=== PATIENT | female | born 1995 | race Native Hawaiian/Other Pacific Islander ===

== ENCOUNTER 2022-01-30 09:54 | Outpatient (CLI) | payer OTHER ==
[2022-01-30 10:27] VITALS: BP 120/70
[2022-01-30] MEDS ORDERED: ACETAMINOPHEN 500 MG TABLET PO PRN (10:31)
--- NOTE | 2022-01-30 10:37 | PROVIDER PROGRESS NOTE ---
- HPI Chief Complaint: Other (tightening 26 year old at 22 weeks gestation presenting with abdominal tightening x 1 week. Pain is constant in her right flank area and suprapubic region. She has not taken any medications for pain. She denies fever or chills. She denies vaginal bleeding or leakage of fluid.) Current : Vital Signs Temperature 97.9 F 01/30/22 10:15 Heart Rate 79 01/30/22 10:15 Respiratory Rate 18 01/30/22 10:15 Blood Pressure 120/70 01/30/22 10:15 Temperature 97.9 F 01/30/22 10:15 Heart Rate 79 01/30/22 10:15 Respiratory Rate 18 01/30/22 10:15 Blood Pressure 120/70 01/30/22 10:15 O2 Saturation - Exam Gen- NAD Lungs- No respiratory distress Abdomen- soft, nontender, gravid Back- mild right CVA tenderness - Procedures Findings: 26-year-old at 23 weeks 4 days gestation(EDC- 05/25/22) who presents with complaints of suprapubic pain and right upper quadrant abdominal tightening. Abdominal painthe patient was afebrile. No contractions were noted on monitor. Her pain was not reproducible on exam. Her pain improved with pelvic support and Tylenol. Urine analysis was negative. She was stable for discharge with supportive treatment with therapy at home. Continue p.o. hydration, Tylenol as needed.
[2022-01-30 10:42] LABS: BILIRUBIN,URINE NEGATIVE (NEGATIVE); CLARITY,URINE CLEAR (CLEAR); GLUCOSE, URINE (UA) NEGATIVE (NEGATIVE); KETONES,URINE (UA) NEGATIVE (NEGATIVE); LEUKOCYTE ESTERASE, URINE NEGATIVE (NEGATIVE); NITRITE,URINE NEGATIVE (NEGATIVE); OCCULT BLOOD,URINE NEGATIVE (NEGATIVE); PH,URINE 6.5 PH (5.0-7.5); PROTEIN,URINE NEGATIVE (NEGATIVE); UROBILINOGEN,URINE 0.2 (NORMAL) E.U./dL (NORMAL)
== END 2022-01-30 12:15 | disposition home or self-care (01) ==
LOC: EDSTATUS 10:07 → WFO 10:10 → FBP 10:12 → WFO 12:15
PROVIDERS: ATTEND Obstetrics & Gynecology
DX: O99.891 Other specified diseases and conditions complicating pregnancy (principal); R10.11 Right upper quadrant pain; R10.2 Pelvic and perineal pain
CPT/HCPCS: 81001; 81003; 87086; 99214

== ENCOUNTER 2022-07-01 13:50 | Outpatient (CLI) | payer OTHER ==
--- NOTE | 2022-07-01 16:18 | MRI Report ---
PROCEDURE: Wrist RT W/O INDICATIONS: RIGHT WRIST PAIN TECHNIQUE: Noncontrast coronal proton density fast spin echo and T2 fast spin echo with fat saturation; coronal 3-D gradient echo, axial T1 spin echo and T2 fast spin echo with fat saturation, sagittal T1 spin ech o through the wrist. COMPARISON: None. FINDINGS: Image quality: Excellent. Bones and cartilage: The carpal bones are normally aligned. No bone marrow contusions or fractures. No evidence for avascular necrosis. Overlying cartilage surfaces appear normal. Carpal ligaments: The scapholunate and lunotriquetral ligaments appear intact. In the absence of in tra-articular contrast, the extrinsic carpal ligaments are not well identified. On sagittal images, the pisohamate ligament appears intact. Triangular fibrocartilage complex: The triangular fibrocartilage appears intact. The adjacent menis kenny homolog appears normal in the absence of intra-articular contrast. The extensor carpi ulnaris te ndon is thickened with intrasubstance T2 hyperintense signal at the level of ulnar styloid. Tendons and soft tissues: The carpal tunnel structures appear normal, including the median nerve. T he ulnar nerve appears normal within Guyon's canal. Rest of the extensor tendon compartments demonstr ate normal morphology, without pathologic tendon sheath fluid. Possible ganglion cyst over volar aspe ct of radial styloid is seen and measures 6 x 3 x 6 mm in size. IMPRESSION: 1. Tendinosis and possible low-grade intrasubstance partial thickness tear involving the extensor car pi ulnaris tendon at the level of ulnar styloid. 2. Intrinsic and extrinsic wrist ligaments are grossly intact. 3. No marrow edema. No fracture or dislocation. No evidence of osteonecrosis. 4. Possible small ganglion cyst over volar aspect of radial styloid and measures 6 x 3 x 6 mm in size . . Triangular fibrocartilage complex is grossly intact. Reviewed by: Hao Matias MD on 07/01/2022 4:17 PM PDT Approved by: Hao Matias MD on 07/01/2022 4:17 PM PDT Station ID: [id number]
== END 2022-07-01 13:51 | disposition home or self-care (01) ==
LOC: DI 13:50
DX: M67.931 Unspecified disorder of synovium and tendon, right forearm (principal)

== ENCOUNTER 2024-03-04 08:00 | Outpatient (CLI) | payer OTHER ==
[2024-03-04 18:39] LABS: BILIRUBIN,URINE NEGATIVE (NEGATIVE); GLUCOSE, URINE (UA) NEGATIVE (NEGATIVE); KETONES,URINE (UA) NEGATIVE (NEGATIVE); LEUKOCYTE ESTERASE, URINE NEGATIVE (NEGATIVE); NITRITE,URINE NEGATIVE (NEGATIVE); OCCULT BLOOD,URINE NEGATIVE (NEGATIVE); PROTEIN,URINE NEGATIVE (NEGATIVE); UROBILINOGEN,URINE 0.2 (NORMAL) E.U./dL (NORMAL)
[2024-03-04 18:41] LABS: TOTAL PROTEIN,URINE TIMED < 4 mg/dL
[2024-03-04 19:00] LABS: BACTERIA,URINE Many /HPF (None Seen); CLARITY,URINE HAZY (CLEAR); RBC,URINE None Seen /HPF (0-5); SQUAMOUS EPITHELIAL CELL,UR MANY Squamous (<= Few); WBC,URINE 0-3 /HPF (0-5)
== END 2024-03-04 23:59 | disposition home or self-care (01) ==
LOC: LAB.WC 08:00
PROVIDERS: ATTEND Obstetrics & Gynecology
DX: Z34.90 Encounter for supervision of normal pregnancy, unspecified, unspecified trimester (principal)
CPT/HCPCS: 81001; 82570; 84156; 87086

== ENCOUNTER 2024-03-05 14:50 | Outpatient (CLI) | payer OTHER ==
[2024-03-05 18:02] LABS: BASOPHILS # (AUTO) 0.1 10^3/uL (0.0-0.1); BASOPHILS % (AUTO) 0.6 %; EOSINOPHILS # (AUTO) 0.1 10^3/uL (0.0-0.7); EOSINOPHILS % (AUTO) 0.7 %; HCT - HEMATOCRIT 36.1 % (37.0-47.0); HGB - HEMOGLOBIN 11.5 g/dL (12.0-16.0); LYMPHOCYTES # (AUTO) 1.6 10^3/uL (1.5-3.5); LYMPHOCYTES % (AUTO) 11.9 %; MEAN CORPUSCULAR HEMOGLOBIN 26.8 pg (27.0-31.0); MEAN CORPUSCULAR HGB CONC 31.9 g/dL (32.0-36.0); MEAN CORPUSCULAR VOLUME 84.1 fL (81.0-99.0); MONOCYTES # (AUTO) 0.6 10^3/uL (0.0-1.0); MONOCYTES % (AUTO) 4.3 %; NEUTROPHILS # (AUTO) 11.3 10^3/uL (1.5-6.6); NEUTROPHILS % (AUTO) 82.2 %; PLT - PLATELET COUNT 401 10^3/uL (130-450); RED BLOOD COUNT 4.29 10^6/uL (4.20-5.40); WHITE BLOOD COUNT 13.7 x10^3/uL (4.8-10.8)
[2024-03-05 21:05] LABS: ESTIMATED AVERAGE GLUCOSE 105 mg/dL (70-100); HEMOGLOBIN A1c% 5.3 % (4.27-6.07)
[2024-03-07 06:08] LABS: HIV SCREEN 4TH GENERATION Non Reactive (Non Reactive)
[2024-03-07 10:07] LABS: HBsAG SCREEN Negative (Negative)
[2024-03-08 13:09] LABS: VARICELLA-ZOSTER AB IGG 255 index (Immune >165)
== END 2024-03-05 14:51 | disposition home or self-care (01) ==
LOC: LAB.N 14:50
PROVIDERS: ATTEND Obstetrics & Gynecology
DX: Z34.90 Encounter for supervision of normal pregnancy, unspecified, unspecified trimester (principal)
CPT/HCPCS: 36415; 83036; 85025; 86592; 86762; 86787; 86803; 86850; 86900; 86901; 87340; 87389

== ENCOUNTER 2024-03-11 07:37 | Outpatient (CLI) | payer OTHER ==
--- NOTE | 2024-03-11 13:57 | Ultrasound Report ---
PROCEDURE: Abdomen Limited INDICATIONS: H/O HELLP, ABDOMINAL PAIN, 8 WKS TECHNIQUE: Ultrasound of the abdominal right upper quadrant was obtained with image documentation. COMPARISONS: None. FINDINGS: Liver: Liver shows diffusely increased echogenicity without focal mass lesion. No intrahepatic duct al dilation. Gallbladder: Sonolucent without cholelithiasis. No gallbladder wall thickening. No pericholecystic fluid or Castillo's sign. Common Bile Duct: 3.2 mm. Pancreas: Unremarkable as visualized. Right Kidney: Appropriate in size and echotexture. No evidence of hydronephrosis. No shadowing calc fareed. No solid or cystic mass lesion. Additionally, a single intrauterine is identified with a heart rate of 167 bpm IMPRESSION: Hepatic fatty infiltration without focal mass lesion. Otherwise unremarkable right upper quadrant ult rasound Reviewed by: Shar Ortiz MD on 03/11/2024 12:55 PM SANTA Approved by: Shar Ortiz MD on 03/11/2024 12:55 PM AKARMINDA Station ID: [id number]
== END 2024-03-11 07:38 | disposition home or self-care (01) ==
LOC: DI 07:37
DX: O99.611 Diseases of the digestive system complicating pregnancy, first trimester (principal); K76.0 Fatty (change of) liver, not elsewhere classified; Z3A.08 8 weeks gestation of pregnancy

== ENCOUNTER 2024-03-20 16:02 | Outpatient (CLI) | payer OTHER ==
--- NOTE | 2024-03-21 07:05 | Ultrasound Report ---
PROCEDURE: OB 1st Trimester INDICATIONS: POSITIVE TEST OUTSIDE/PRIOR DATING DATA: Last menstrual period (LMP): 01/01/2024. LMP-based estimated date of delivery (REVA): 10/07/2024. First dating scan (date and location): Today's exam. Estimated date of delivery (REVA) from first dating scan: 10/03/2024. TECHNIQUE: Real-time scanning was performed of the fetus and maternal pelvic organs, with image documentation. COMPARISON: None. FINDINGS: Intrauterine gestational sac present. Embryo: Present, measuring 5.1 cm, 11 weeks 6 days Heart rate: 166 bpm. Other: No perigestational fluid collection. Measurement variability in dating: +/- 4 weeks by LMP, +/- 7 days by mean sac diameter (use before 6 weeks gestation if crown-rump length not able to be measured), +/- 5 days by crown-rump length (6-12 weeks gestation). Maternal organs: Ovaries appear within normal limits. IMPRESSION: Single living intrauterine at 11 weeks 6 days, REVA of 10/03/2024 based on today's exam. Reviewed by: Reilly See MD on 03/21/2024 7:04 AM PDT Approved by: Reilly See MD on 03/21/2024 7:04 AM PDT Station ID: [id number]
== END 2024-03-20 16:03 | disposition home or self-care (01) ==
LOC: DI 16:02
PROVIDERS: ATTEND Obstetrics & Gynecology
DX: Z34.91 Encounter for supervision of normal pregnancy, unspecified, first trimester (principal)

== ENCOUNTER 2024-04-02 12:11 | Outpatient (CLI) | payer OTHER ==
[2024-04-02 13:04] LABS: ALBUMIN 4.1 g/dL (3.2-5.5); ALBUMIN/GLOBULIN RATIO 1.3 (1.0-2.2); BILIRUBIN,TOTAL 0.4 mg/dL (0.2-1.0); CALCIUM 9.5 mg/dL (8.5-10.3); CREATININE 0.6 mg/dL (0.6-1.3); POTASSIUM 3.8 mmol/L (3.5-4.5); TOTAL PROTEIN 7.2 g/dL (6.4-8.9)
[2024-04-02 22:28] LABS: CHLAMYDIA TRACHOMATIS DNA NEGATIVE (NEGATIVE); NEISSERIA GONORRHOEAE DNA NEGATIVE (NEGATIVE); TRICHOMONAS VAGINALIS DNA NEGATIVE (NEGATIVE)
== END 2024-04-02 12:12 | disposition home or self-care (01) ==
LOC: LAB 12:11
PROVIDERS: ATTEND Obstetrics & Gynecology
DX: Z11.3 Encounter for screening for infections with a predominantly sexual mode of transmission (principal); Z87.59 Personal history of other complications of pregnancy, childbirth and the puerperium
CPT/HCPCS: 36415; 80053; 87491; 87591; 87661

== ENCOUNTER 2024-05-10 13:47 | Outpatient (CLI) | payer OTHER | END 2024-05-10 13:48 | disposition home or self-care (01) | LOC: LAB 13:47 | PROVIDERS: ATTEND Obstetrics & Gynecology | DX: O09.90 Supervision of high risk pregnancy, unspecified, unspecified trimester (principal) | CPT/HCPCS: 36415; 81511 ==

== ENCOUNTER 2024-05-13 09:40 | Emergency (ER) | payer OTHER ==
--- NOTE | 2024-05-13 09:58 | ED Physician Documentation ---
History of Present Illness - Stated complaint Stated Complaint: VOMITING BLOOD - History obtained from History obtained from: Patient - Additonal information Additional information: 28-year-old G2, P1 at 18 weeks gestation. She has a history of elevated liver enzymes with her first but no bleeding issues. In the last week she is vomited 3 times and there have been specks of blood each time. Generally mixed with food. No severe headache although she was light sensitive this morning without history of migraines. No stomach pain or diarrhea or changes in bowel movements. PD PAST MEDICAL HISTORY - Past Medical History Past Medical History: Yes Other Past Medical History: High lover enzymes - Past Surgical History /ADULT PROBATION OFFICER: section - Present Medications Home Medications: Ambulatory Orders Medication Instructions Recorded Confirmed Mineral Oil/Petrolatum,White 3.5 gm LEFTEYE DAILY PM #3.5 gm 04/28/22 [Lubricant Pm Eye Ointment] Valacyclovir HCl [Valtrex] 1,000 mg PO TID 7 Days #21 tablet 04/28/22 predniSONE [Deltasone] 60 mg PO DAILY 6 Days #18 tablet 04/28/22 Famotidine [Pepcid] 20 mg PO BID #60 tablet 05/13/24 Ondansetron Odt [Zofran] 4 mg TL Q6H PRN #10 tablet 05/13/24 - Allergies Allergies/Adverse Reactions: Allergies Allergy/AdvReac Type Severity Reaction Status Date / Time No Known Drug Allergies Allergy Verified 05/13/24 09:58 - Social History Does the pt smoke?: No Smoking Status: Never smoker Does the pt drink ETOH?: No Does the pt have substance abuse?: No - Immunizations Immunizations are current?: Yes - POLST Patient has POLST: No PD ED PE NORMAL - Vitals Vital signs reviewed: Yes - General General: Alert and oriented X 3, No acute distress - HEENT HEENT: Pharynx benign - Cardiac Cardiac: RRR, No murmur - Respiratory Respiratory: No respiratory distress - Abdomen Abdomen: Normal bowel sounds, Soft, Non tender, Other (Soft and nontender. Bedside ultrasound demonstrates single live intrauterine with heart rate of 154.) - Neuro Neuro: Alert and oriented X 3 Results - Vitals Vitals: Vital Signs - 24 hr 05/13/24 09:45 Temperature 36.4 C L Heart Rate 68 Respiratory 18 Rate Blood Pressure 99/54 L O2 Saturation 100 Oxygen O2 Source Room air - Labs Labs: Laboratory Tests 05/13/24 05/13/24 05/13/24 10:05 10:05 10:05 WBC 11.1 H RBC 4.36 Hgb 11.8 L Hct 36.9 L MCV 84.6 MCH 27.1 MCHC 32.0 RDW 13.5 Plt Count 319 MPV 9.8 Neut # (Auto) 8.7 H Lymph # (Auto) 1.6 Rock # (Auto) 0.6 Eos # (Auto) 0.1 Baso # (Auto) 0.1 Absolute Nucleated RBC 0.00 Nucleated RBC % 0.0 PT 11.6 INR 1.1 Sodium 135 Potassium 3.8 Chloride 105 Carbon Dioxide 26 Anion Gap 4.0 L BUN 8 Creatinine 0.6 Estimated GFR (MDRD) 119 Glucose 87 Calcium 9.0 Total Bilirubin 0.5 AST 16 ALT 20 Alkaline Phosphatase 29 L Total Protein 6.5 Albumin 3.6 Globulin 2.9 Albumin/Globulin Ratio 1.2 PD Medical Decision Making - ED course ED course: CBC, CMP, INR normal/negative save mild leukocytosis which is normal for . No vomiting here. Will treat symptomatically pending follow-up. Departure - Departure Disposition: 01 Home, Self Care Clinical Impression: 18 weeks gestation of , Vomiting, Hematemesis Condition: Good Record reviewed to determine appropriate education?: Yes Instructions: ED Nausea Vomiting Prescriptions: Famotidine [Pepcid] 20 mg PO BID #60 tablet Ondansetron Odt [Zofran] 4 mg TL Q6H PRN #10 tablet PRN Reason: Nausea / Vomiting Comments: I sent the prescriptions electronically to the [facility] in [place]. Labs are looking okay as is your exam. Usually vomiting blood like this is from a small tear or abrasion in the esophagus or throat. I suspect if we are able to control your nausea and stomach acid with the medications it will resolve on its own. Call your doctor to arrange a follow-up appointment, make the next available appointment. In the interim, return anytime if worse or if new symptoms develop. Forms: PCP List Discharge Date/Time: 05/13/24 10:38
[2024-05-13 10:01] VITALS: BP 99/54; O2SAT 100
[2024-05-13 10:09] LABS: BASOPHILS # (AUTO) 0.1 10^3/uL (0.0-0.1); BASOPHILS % (AUTO) 0.6 %; EOSINOPHILS # (AUTO) 0.1 10^3/uL (0.0-0.7); EOSINOPHILS % (AUTO) 0.8 %; HCT - HEMATOCRIT 36.9 % (37.0-47.0); HGB - HEMOGLOBIN 11.8 g/dL (12.0-16.0); LYMPHOCYTES # (AUTO) 1.6 10^3/uL (1.5-3.5); LYMPHOCYTES % (AUTO) 14.6 %; MEAN CORPUSCULAR HEMOGLOBIN 27.1 pg (27.0-31.0); MEAN CORPUSCULAR VOLUME 84.6 fL (81.0-99.0); MEAN PLATELET VOLUME 9.8 fL (7.9-10.8); MONOCYTES # (AUTO) 0.6 10^3/uL (0.0-1.0); NEUTROPHILS # (AUTO) 8.7 10^3/uL (1.5-6.6); NEUTROPHILS % (AUTO) 78.4 %; PLT - PLATELET COUNT 319 10^3/uL (130-450); RED BLOOD COUNT 4.36 10^6/uL (4.20-5.40); RED CELL DISTRIBUTION WIDTH 13.5 % (12.0-15.0); WHITE BLOOD COUNT 11.1 x10^3/uL (4.8-10.8)
[2024-05-13 10:16] LABS: INR 1.1 (0.8-1.2); PT - PROTHROMBIN TIME 11.6 secs (9.9-12.6)
[2024-05-13] MEDS: PANTOPRAZOLE 40 MG TABLET PO STA (10:16)
[2024-05-13] MEDS: ONDANSETRON ODT 4 MG TABLET TL STA (10:16)
[2024-05-13 10:25] LABS: ALBUMIN 3.6 g/dL (3.2-5.5); ALBUMIN/GLOBULIN RATIO 1.2 (1.0-2.2); BILIRUBIN,TOTAL 0.5 mg/dL (0.2-1.0); CREATININE 0.6 mg/dL (0.6-1.3); POTASSIUM 3.8 mmol/L (3.5-4.5); TOTAL PROTEIN 6.5 g/dL (6.4-8.9)
== END 2024-05-13 10:38 | disposition home or self-care (01) ==
LOC: ED 09:40
DX: O21.8 Other vomiting complicating pregnancy (principal); K92.0 Hematemesis; Z3A.18 18 weeks gestation of pregnancy
CPT/HCPCS: 36415; 80053; 85025; 85610; 99283; 99284; A9270; Q0162

== ENCOUNTER 2024-05-31 21:25 | Outpatient (CLI) | payer OTHER ==
--- NOTE | 2024-06-03 00:28 | Ultrasound Report ---
PROCEDURE: OB Anatomy Scan INDICATIONS: SUPERVISION OF HIGH RISK OUTSIDE/PRIOR DATING DATA: Last menstrual period (LMP): 01/01/2024. LMP-based estimated date of delivery (REVA): 10/07/2024. First dating scan (date and location): 03/20/2024. Estimated date of delivery (REVA) from first dating scan: 10/03/2024. The below data below was generated using the working REVA of 10/05/2024 TECHNIQUE: Ultrasound of the gravid uterus was performed and recorded. COMPARISON: None. FINDINGS: General: A single live intrauterine gestation is present. Presentation: Variable Placenta: Placental position is anterior without previa. Amniotic fluid index: 21.8 cm, 95 percentile for gestational age. heart rate: 152 beats per minute. Maternal cervical canal: 6 cm long; normal length is 2.5 cm or more. biometrics: Biparietal diameter: 5.3 cm, 22 week 2 day, 65% Head circumference: 20 cm, 22 week 2 day, 55% Abdominal circumference: 17.0 cm, 22 week 0 day, 47% Femur length: 3.5 cm, 21 week 2 day, 20% Estimated gestational age by working dates: 21 week 6 day Composite gestational age by current ultrasound: 21 week 6 day Estimated weight and percentile: 447 g, 38 percentile Measurement variability in biometric dating: +/- 10 days from 12-20 weeks gestation, +/- 2 weeks from 20-30 weeks gestation, +/- 3 weeks at 30 weeks gestation or more. Anatomic survey: Neuro: Ventricles are non-dilated at less than 10 mm. Cisterna magna is normal at 3-11 mm. Cerebel lum is normal in size and morphology. Nuchal skin fold: Normal at less than 6 mm between 14-20 weeks gestational age. Face: Nose and lips, facial profile are normal. Spine: No evidence for spina bifida. Heart: 4-chambered heart is present, with normal ventricular outflow tracts. Diaphragm: Diaphragm is intact. Stomach: Left-sided stomach is present. Kidneys: No hydronephrosis. Normal is less than 5 mm in 2nd trimester, less than 7 mm in 3rd trimester. Cord: 3-vessel cord has orthotopic insertion. Bladder: Normal in size. Extremities: All 4 extremities identified. Other: Not applicable. IMPRESSION: Single live intrauterine consistent with 21 week 6 day gestation by current ultrasound Normal anatomic survey Reviewed by: Shar Ortiz MD on 06/02/2024 11:27 PM SANTA Approved by: Shar Ortiz MD on 06/02/2024 11:27 PM SANTA Station ID: [id number]
== END 2024-05-31 21:26 | disposition home or self-care (01) ==
LOC: DI 21:25
PROVIDERS: ATTEND Obstetrics & Gynecology
DX: O09.92 Supervision of high risk pregnancy, unspecified, second trimester (principal); O34.211 Maternal care for low transverse scar from previous cesarean delivery; Z3A.21 21 weeks gestation of pregnancy